=== PATIENT | male | born 1970 | race Caucasian/White ===

== ENCOUNTER 2020-06-19 15:58 | Inpatient (IN) | payer MEDICAID ==
[~2020-06-19] VITALS: Ht 175.3 cm; Wt 95.7 kg
[2020-06-19 19:00] VITALS: BP 109/62
[2020-06-19] MEDS ORDERED: OMEP20TA63 PO (19:33)
[2020-06-19] MEDS ORDERED: ASPI-630 PO (19:33)
[2020-06-19] MEDS ORDERED: ATOR40TA59 PO (19:33)
[2020-06-19] MEDS ORDERED: LEVE500T56 PO (19:33)
[2020-06-19] MEDS ORDERED: TRAZ-123 PO (19:33)
[2020-06-19] MEDS: ATORVASTATIN CALCIUM 40 MG TABLET. PO SCH (21:04)
[2020-06-19] MEDS: BACLOFEN 10 MG TABLET. PO SCH (21:04)
[2020-06-19] MEDS: levETIRAcetam 500 MG TABLET PO SCH (21:04)
[2020-06-19] MEDS: traZODone 100 MG TABLET. PO SCH (21:04)
[2020-06-19 23:00] VITALS: BP 94/49
[2020-06-20] VITALS (7 sets, daily range): BP systolic 99–127; BP diastolic 50–82
[2020-06-20] MEDS: PANTOPRAZOLE 40 MG TABLET.DR. PO SCH (06:36)
[2020-06-20] MEDS: levETIRAcetam 500 MG TABLET PO SCH ×2 (08:39→20:19)
[2020-06-20] MEDS: ASPIRIN CHEWABLE 81 MG TABLET. PO SCH (08:39)
[2020-06-20] MEDS: BACLOFEN 10 MG TABLET. PO SCH ×3 (08:39→20:19)
--- NOTE | 2020-06-20 11:49 | PDOC2 ---
NEUROLOGY CONSULT Date of Service DOS: DATE: 06/20/20 TIME: 11:42 Reason for Consult Reason for Consult: Myoclonus Referring Physician Referring Physician: Dr. Hubbard Source Source: Caregiver (Girlfriend), Chart review, Patient History of Present Illness History of Present Illness The patient is a 49-year-old right-handed male who had a right hemispheric stroke 2 years ago, for which no etiology was found. He has been followed at the [facility]. In March, he had some twitching of his left leg, sometimes his left arm, without altered consciousness, tongue biting, or i ncontinence. His physician ordered a 48-hour EEG, but he never had that done. He does not remember when he last had any imaging of the brain. He came here to visit his girlfriend in [place], and for the past week has had jerking movements of the left leg, difficulty walking, but again without altered consciousness, tongue biting, incontinence, or headache. He went to the [facility] emergency department and had a head CT as reviewed below. It was then decided to transfer him here. On closer questioning, he is really describing muscle spasms of the left leg. He has already been started on some baclofen, and says that it is helping. He is a recovering alcoholic, last drink several years ago, he used to have alcohol withdrawal seizures and remains on levetiracetam. Past Surgical History Past Surgical History: Other (Left forearm compartment syndrome from a fall while drunk) Family History Family History: No pertinent hx Social History Social History Has significant other, no longer uses alcohol, rare tobacco. Current Medications Current Medications Current Medications Baclofen (Lioresal) 10 mg TID PO Last administered on 06/20/20at 08:39; Start 06/19/20 at 21:00 Aspirin (Aspirin Chewable) 81 mg DAILY PO Last administered on 06/20/20at 08:39; Start 06/20/20 at 09:00 Atorvastatin Calcium (Lipitor) 40 mg HS PO Last administered on 06/19/20at 21:04; Start 06/19/20 at 21:00 Levetiracetam (Keppra) 500 mg BID PO Last administered on 06/20/20at 08:39; Start 06/19/20 at 21:00 Trazodone HCl (Desyrel) 100 mg QHS PO Last administered on 06/19/20at 21:04; Start 06/19/20 at 21:00 Pantoprazole Sodium (Protonix) 40 mg DAILYAC PO Last administered on 06/20/20at 06:36; Start 06/20/20 at 07:30 Active Scripts Active Reported Keppra (Levetiracetam) 500 Mg Tablet 500 Mg PO BID Trazodone Hcl 100 Mg Tablet 1 Tab PO QHS Atorvastatin Calcium 40 Mg Tablet 40 Mg PO HS Prilosec Otc (Omeprazole Magnesium) 20 Mg Tablet.dr 20 Mg PO DAILY Aspirin 81 Mg Tab.chew 1 Tab PO DAILY Allergies Allergies: Coded Allergies: No Known Medication Allergies (Verified Allergy, Unknown, 06/19/20) ROS Review of System Negative for fever, chills, weight loss, shortness of breath, chest pain, indigestion, hematochezia, melena, and dysuria. Full 14-point review of systems is negative. Physical Exam Physical Examination General: Well-developed, well-nourished white male in no acute distress HEENT: Normocephalic andatraumatic. Temporal arteriespulsatile and nontender. Neck: Supple without bruit, no meningismus Musculoskeletal: Stability:see neurologic. Gait exam:see neurologic. Tone:see neurologic.Strength:see neurologic. Neurological: Mental Status:intact, orientation, memory, attention span/concentration, language, fund of knowledge normal. Cranial Nerves:Pupils equal and reactive to light, extraocular movements areintact, visual king are full to confrontation. Facial sensation is normal. There is no facial asymmetry. Vestibulo-ocular reflex is intact. Palate elevates and tongue protrudes in midline. All other cranial related problems are negative except as mentioned before.Reflexes:2+ and symmetric with flexor plantar responses. Motor:4/5 left hemiparesis with increased tone especially in the left leg, normal bulk. Coordination:Finger-nose finger and ccxe-wk-[id number] testing are normal. Rapid alternating movements and fine finger movements are intact. Gait:Not tested. Sensory:Normal pinprick, vibration, light touch, proprioception. Vitals VITALS Vital Signs Date Time Temp Pulse Resp B/P (MAP) Pulse Ox O2 Delivery O2 Flow Rate FiO2 06/20/20 10:39 97.8 68 18 109/68 (82) 95 Room Air 97.[address] scan of the head without contrast 06/19/2020, [place]' No previous study is available for comparison. There is generalized parenchymal atrophy. An area encephalomalacia seen involving portions of the right posterior temporal/occipital/parietal lobe area of previous infarction. No acute parenchymal abnormality is seen. No extra-axial fluid collection is noted. No skull fracture is seen. Impression: No acute intracranial abnormality is seen. Assessment/Plan Assessment/Plan Impression: Right posterior temporal/occipital/parietal lobe infarction, apparently cryptogenic Spasticity from the stroke, these are not seizures or myoclonus. New ataxia, reasonable to exclude a new stroke. Recommendations: MRI of the brain Continue baclofen Rehabilitation screening I disagree with a need for electroencephalogram, routine or much less a 48-hour study. I will consider this only if he fails to respond to antispasticity agent, the baclofen. I fully discussed with the patient and his girlfriend Aim for discharge later today. Thank you for letting me help with the patient's care. CHAPINCITO IYER MD Jun 20, 2020 11:49
--- NOTE | 2020-06-20 14:08 | NUR ---
SW following. Discussed with RN, pt from home with mother in [place], pt here visiting his girlfriend. SW consult for being out of town and visiting, and needing resources. RASHAUN met with pt, pt denies any need for social work or resources - is not sure why SW was consulted. RN notified. RASHAUN will continue to follow. Addendum: 06/20/20 at 1618 by AMY RODNEY Pt transferring to [address] [place] [address]. Estefania DAO notified.
--- NOTE | 2020-06-20 14:43 | HP ---
ADMIT DATE: HISTORY OF PRESENT ILLNESS: The patient is a 49-year-old male patient who lives in [place] and who apparently came to visit his girlfriend. He apparently has a large right-sided cerebrovascular accident a year and a half ago with resultant left-sided hemiparesis, who presented to the Emergency Room of [facility] with gait ataxia, imbalance and tremors, spasm in his left leg. He stated that he had similar events last March, which resolved over a couple of days. He went to see his doctor there at that time and nothing was found. Since last Thursday, he has been having episodes of significant left lower extremity muscle spasm and cramping, which he has had before. He also stated that over the last few days, he has felt unsteady on his feet and when walking, has to hold onto the wall to keep from falling, all these are something new for him. He denied any recent illness, fever, chest pain, shortness of breath. He is on Keppra as he had a history of alcohol-induced withdrawal seizures at about the same time that he has stroke and therefore his doctor decided to keep him on it and stated that he has been taking it as prescribed. He denied any confusion, facial droop, slurred speech, numbness or weakness. He was extensively evaluated in the Emergency Room, has had a CT scan of the head, which basically showed that there is generalized parenchymal atrophy and area of encephalomalacia seen involving the portion of the right posterior temporal occipital and parietal lobe area of previous infarction. No acute parenchymal abnormalities seen. No extraaxial fluid collection is noted. No skull fracture is seen. His lab works were all well within acceptable range. His urine drug screen was negative and urinalysis was unremarkable. Given the new onset of weakness and unsteady gait, a decision was made to transfer him to [facility] to consult the neurologist and to arrange for an MRI if it was felt deemed necessary. 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 Apparently, the patient stopped drinking about 13 months ago. He also had compartment syndrome of his left upper extremity required fasciotomy and left wrist fusion. PAST SURGICAL HISTORY: Significant for: 1. Fasciotomy of the left upper extremity. 2. Wrist fusion. ALLERGIES: He has no known drug allergies. MEDICATIONS: He is currently on following medications: Omeprazole 40 mg once a day, Lipitor 40 mg at bedtime, aspirin 81 mg once a day, Keppra 500 mg twice a day, and trazodone 100 mg at bedtime. FAMILY HISTORY: He has one sister older and healthy, she has hypertension and hyperlipidemia. His father at the age of 75. Mother is still alive at age of 76 and has hypertension. SOCIAL HISTORY: He lives in [place]. He quit smoking and drinking about 13 months ago. He does not use any drugs. REVIEW OF SYSTEMS: As per history of present illness. PHYSICAL EXAMINATION: GENERAL: On arrival, he looked well and was clearly in no apparent respiratory distress. No pallor, jaundice, cyanosis or thyromegaly. No jugular venous distension. No lower limb edema. VITAL SIGNS: His heart rate was 82, blood pressure was 118/68, temperature was 98.6, respiratory rate was 16, and oxygen saturation was 94%. HEAD, EYES, EARS, NOSE AND THROAT: Showed normocephalic, atraumatic. NECK: Supple. HEART: Showed normal first and second heart sounds. No gallop, rub or murmur. CHEST: Clear to auscultation. No crepitation or rhonchi. ABDOMEN: Distended, soft, nontender. NEUROLOGIC: He was awake, alert. All his cranial nerves seem to be intact. He has a left-sided hemiparesis. He does have episodes of what seemed to be cramping or muscle spasm that is short-lived and does not seem to be consistent with partial seizures and movement of generalized and was mostly confined to his left lower extremity. LABORATORY DATA: His lab work showed a white cell count of 7500, hemoglobin 13, hematocrit 41, MCV 83 and platelet count of 193,000. His chemistry showed a serum sodium 139, potassium 4.1, chloride 103, bicarbonate 23, anion gap of 13, BUN 25, creatinine was 1.3, estimated GFR was 58 mL per minute. His glucose was 102, calcium was 8.7, magnesium was 1.8. Total bilirubin, AST, ALT, alkaline phosphatase were normal. Total protein was 6.4, albumin was 3.9. TSH was 2.463. Urinalysis was essentially unremarkable and urine drug screen was negative. ASSESSMENT AND PLAN: In summary, this is a 49-year-old male patient who was transferred to [facility] with muscle spasm in the left lower extremity and ataxic gait. We will consult Dr. Saldivar, the neurologist as well as arrange for him to have an MRI if deemed necessary. GREGORIO CHAVIRA MD DR: TINA/anthony JOB#: [id number] / [id number]
--- NOTE | 2020-06-20 15:22 | RAD ---
EXAM: MRI Brain without IV contrast INDICATION: Reason: right hemisphere stroke '19, incr'd left spasticity and ataxia, r/o new CVA / Spl . Instructions: / History: . TECHNIQUE: Sagittal and axial T1-w and axial T2-w, FLAIR, GRE, coronal T2-w, and diffusion-w images o f the brain with ADC maps without IV contrast. COMPARISON: Noncontrast head CT of 06/19/2020 FINDINGS: BRAIN PARENCHYMA: Restricted diffusion along the parafalcine right parietal lobe compatible with an e volving acute infarct. There is a large area of encephalomalacia in the right cerebral hemisphere inv olving the parietal, occipital and temporal lobes with extensive white matter gliosis. No evidence of acute hemorrhage. No mass effect. A chronic infarct in the inferior left cerebellum is also noted. VENTRICLES & EXTRA-AXIAL SPACES: Ventricles and basal cisterns are enlarged in proportion to the gene ralized parenchymal volume loss evidenced but in addition, there is ex vacuo dilation of the right la teral ventricle, similar to prior. Basilar cisterns are patent. No abnormal extra-axial fluid or mass . VESSELS: Normal signal voids in the larger intracranial vessels. ORBITS: Orbital contents are unremarkable. SINUSES: Paranasal sinuses are clear. Tympanic cavities and mastoid air cells are clear. OSSEOUS & SOFT TISSUES: Marrow signal is within normal limits. IMPRESSION: 1. Small area of restricted diffusion is present in the right parietal lobe, suggesting a small acute infarct with no hemorrhage or mass effect. 2. Large area of chronic infarction in the right cerebral hemisphere as described, and smaller area o f chronic infarction in the inferior left cerebellum. Electronically signed by: Herman Wilson MD (06/20/2020 3:20 PM) [id number]
[2020-06-20] MEDS ORDERED: ACETAMINOPHEN 325 MG TABLET. PO PRN (15:30)
[2020-06-20] MEDS ORDERED: IOHEXOL 350 MG/ML 100 ML VIAL. IV ONE (16:00)
[2020-06-20] MEDS ORDERED: CONTRAST GIVEN. MC PRN (16:00)
--- NOTE | 2020-06-20 16:31 | NUR ---
Pt transferring to room 260. Called and gave report to Katey. Pt belongings were packed by family. Pt taken to CT and then to [facility].
--- NOTE | 2020-06-20 16:41 | RAD ---
EXAM: Left ankle, 2 views. HISTORY: Pain. COMPARISON: None. FINDINGS: 2 views of the left ankle are obtained. There is a tiny ossicle inferior to the lateral mal leolus, likely due to the sequela of remote injury. There is a small accessory ossicle adjacent to th e navicular. The ankle mortise is intact. There is no ossicular lesion. There is soft tissue swelling . IMPRESSION: No acute osseous finding. Soft tissue swelling. Electronically signed by: Arianne Vasquez MD (06/20/2020 4:39 PM) [id number]
--- NOTE | 2020-06-20 17:16 | RAD ---
CTA HEAD AND NECK W/WO CONTRAST History:Reason: CVA / Spl. Instructions: [id number] 75ML / History: Technique: After bolus of intravenous contrast, volumetric CT data acquisition was acquired of the he ad and neck. Multiplanar reconstruction images to include MIP and 3-D reconstruction images are submi tted. Exposure: One or more of the following individualized dose reduction techniques were utilized for thi s examination: 1. Automated exposure control 2. Adjustment of the mA and/or kV according to patient size 3. Use of iterative reconstruction technique. Comparison: MRI June 20, 2020 Any determination of stenosis is based on NASCET criteria. Head CTA: ICA: No stenosis, occlusion or aneurysm. MCA: No stenosis, occlusion or aneurysm. FLORENTINO: No stenosis, occlusion or aneurysm. UNDERGROUND MINE SUPERINTENDENT: No stenosis, occlusion or aneurysm. Basilar artery: No stenosis, occlusion or aneurysm. Distal vertebral arteries: No stenosis, occlusion or aneurysm. Decreased opacification of the left transverse sinus compared to the right. Contrast opacification of the brain is overall arterial phase with mild contrast ossification of the venous sinuses. CT angiogram neck: Aortic arch: Patent Common carotid arteries: No stenosis, occlusion or dissection. Internal carotid arteries: No stenosis, occlusion or dissection. External carotid arteries: Patent Vertebral arteries: Left vertebral artery arises from the aortic arch. Small caliber left vertebral a rtery ends predominantly in posterior inferior cerebellar artery. Dominant right vertebral artery wit hin the neck. Imaged lung apices are unremarkable. Soft tissues appear normal. Bones: No pathologic osseous lesions. Impression: 1. No arterial stenosis or occlusion within the head or neck. 2. Decreased contrast opacification of the left transverse sinus compared to the right, may relate t o stenosis or nonocclusive thrombus. Recommend CT venogram or MR venogram to further evaluate. Electronically signed by: Vivek Wei DO (06/20/2020 5:14 PM) [facility]
--- NOTE | 2020-06-20 18:01 | NUR ---
Patient transferred from 4N to 250. Girlfriend at bedside. Telemetry placed on patient. Head to toe assessment complete. NIH done and charted. Patient NPO until ST evaluates. Patient resting in chair, visiting with girlfriend. Call light within reach.
[2020-06-20] MEDS: ATORVASTATIN CALCIUM 40 MG TABLET. PO SCH (20:19)
[2020-06-20] MEDS: traZODone 100 MG TABLET. PO SCH (20:19)
[2020-06-21 03:19] VITALS: BP 100/51
[2020-06-21 05:28] LABS: CHOLESTEROL/HDL RATIO 1.9
[2020-06-21 06:58] VITALS: BP 114/58
[2020-06-21 10:21] LABS: HEMATOCRIT 41.8 % (39.0-53.0); HEMOGLOBIN 13.5 g/dL (13.0-17.5); RED BLOOD COUNT 5.08 x10^6/uL (4.30-5.70); RED CELL DISTRIBUTION WIDTH 14.4 % (11.5-14.5); WHITE BLOOD COUNT 6.1 x10^3/uL (4.0-11.0)
[2020-06-21] MEDS: PANTOPRAZOLE 40 MG TABLET.DR. PO SCH (10:25)
[2020-06-21] MEDS: BACLOFEN 10 MG TABLET. PO SCH ×4 (10:25→21:08)
[2020-06-21] MEDS: levETIRAcetam 500 MG TABLET PO SCH ×2 (10:25→21:08)
[2020-06-21] MEDS: ASPIRIN CHEWABLE 81 MG TABLET. PO SCH (10:29)
[2020-06-21] MEDS: oxyCODONE IR 5 MG TABLET PO PRN ×2 (10:29→21:08)
[2020-06-21 10:30] LABS: PROTHROMBIN TIME PATIENT 13.8 SEC (11.7-14.0)
[2020-06-21 10:36] LABS: ALBUMIN 3.5 g/dL (3.4-5.0); ALBUMIN/GLOBULIN RATIO 1.3 (1.0-1.7); CALCIUM 8.8 mg/dL (8.5-10.1); CREATININE 1.2 mg/dL (0.7-1.3); GFR 64.6; POTASSIUM 4.3 mmol/L (3.5-5.1); TOTAL BILIRUBIN 0.7 mg/dL (0.2-1.0); TOTAL PROTEIN 6.2 g/dL (6.4-8.2)
[2020-06-21 10:39] VITALS: BP 115/62
--- NOTE | 2020-06-21 11:50 | PN ---
DATE: 06/21/2020 SUBJECTIVE: The patient was admitted as a transfer from [facility] Emergency Room with new onset of muscle spasm and ataxic gait. He was seen yesterday by Dr. Saldivar and has had an MRI of the brain, which showed the patient has small area of restricted diffusion, is present in the right parietal lobe suggesting a small acute infarct with no hemorrhage or mass effect. He also has a large area of chronic infarction in the right cerebral hemisphere and smaller area of chronic infarction in the inferior left cerebellum. OBJECTIVE: GENERAL: When I examined him today, he looked well and was clearly in no apparent respiratory distress. No pallor, jaundice, cyanosis or thyromegaly. No jugular venous distension. No lower limb edema. VITAL SIGNS: His heart rate was 75, blood pressure was 114/58, temperature was 97.8, respiratory rate was 16, and oxygen saturation was 95%. HEAD, EYES, EARS, NOSE AND THROAT: Normocephalic, atraumatic. NECK: Supple. HEART: Showed normal first and second heart sounds. No gallop, rub or murmur. CHEST: Clear to auscultation. No crepitation or rhonchi. ABDOMEN: Distended, soft, nontender. NEUROLOGIC: He has left sided hemiparesis. He continued to have episodes of muscle spasm. LABORATORY AND DIAGNOSTIC DATA: His lab work showed serum triglyceride is 111, total cholesterol was 75, LDL was 14, VLDL was 22, HDL cholesterol was 39 and ratio was 1.9. ASSESSMENT AND PLAN: Given that he has recurrent strokes, I have consulted the residential glazier for possible inborn thrombotic disorder and he is also scheduled for an echocardiogram with a bubble study. GREGORIO CHAVIRA MD DR: TINA/anthony JOB#: [id number] / [id number]
--- NOTE | 2020-06-21 13:28 | PDOC ---
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 I suppose the episode in March was also a small stroke, his physicians in [place] did not check a brain MRI them. Chronic infarctions in the right cerebral hemisphere and inferior left cerebellum. Possible stenosis or nonocclusive thrombus left transverse sinus History of alcohol-related seizures, on levetiracetam Plan Await echocardiogram MR venogram Rehabilitation modalities, may need a left ankle-foot orthosis Add clopidogrel, side effects discussed Continue aspirin Continue statin Dr. Hubbard has increased baclofen dose and consulted hematology. Aiming for discharge tomorrow Discussed with patient and girlfriend. Subjective Tremors are a little bit better Objective Vital Signs Date Time Temp Pulse Resp B/P (MAP) Pulse Ox O2 Delivery O2 Flow Rate FiO2 06/21/20 10:39 98.0 70 16 115/62 (79) 96 Room Air 98.0 Intake and Output 06/21/20 07:00 Intake Total 200 ml Output Total 700 ml Balance -500 ml Intake Oral 200 ml Output Urine Total 700 ml PHYSICAL EXAM Alert. Oriented to time, place and person. PERRL. EOMI. CN: no focal findings. Muscle tone: Increased on left Muscle strength: 4/5 left hemiparesis DTR: 2+ Plantar reflex: Flexor Gait: Consistent with left hemiparesis and left foot drop Sensory exam: no abnormal findings. No cerebellar signs elicited. Review of Relevant I have reviewed the following items brigitte (where applicable) has been applied. Labs Laboratory Tests Test 06/21/20 04:44 White Blood Count 6.1 x10^3/uL (4.0-11.0) Red Blood Count 5.08 x10^6/uL (4.30-5.70) Hemoglobin 13.5 g/dL (13.0-17.5) Hematocrit 41.8 % (39.0-53.0) Mean Corpuscular Volume 82 fL (79-100) Mean Corpuscular Hemoglobin 27 pg (25-35) Mean Corpuscular Hemoglobin Concent 32 g/dL (31-37) Red Cell Distribution Width 14.4 % (11.5-14.5) Platelet Count 218 x10^3/uL (140-400) Prothrombin Time 13.8 SEC (11.7-14.0) Prothromb Time International Ratio 1.1 (0.8-1.1) Activated Partial Thromboplast Time 30 SEC (24-38) Sodium Level 140 mmol/L (136-145) Potassium Level 4.3 mmol/L (3.5-5.1) Chloride Level 106 mmol/L (98-107) Carbon Dioxide Level 25 mmol/L (21-32) Anion Gap 9 (6-14) Blood Urea Nitrogen 18 mg/dL (8-26) Creatinine 1.2 mg/dL (0.7-1.3) Estimated GFR (Cockcroft-Gault) 64.6 BUN/Creatinine Ratio 15 (6-20) Glucose Level 94 mg/dL (70-99) Calcium Level 8.8 mg/dL (8.5-10.1) Total Bilirubin 0.7 mg/dL (0.2-1.0) Aspartate Amino Transf (AST/SGOT) 14 U/L (15-37) Alanine Aminotransferase (ALT/SGPT) 18 U/L (16-63) Alkaline Phosphatase 68 U/L (46-116) Total Protein 6.2 g/dL (6.4-8.2) Albumin 3.5 g/dL (3.4-5.0) Albumin/Globulin Ratio 1.3 (1.0-1.7) Triglycerides Level 111 mg/dL (0-150) Cholesterol Level 75 mg/dL (0-200) LDL Cholesterol, Calculated 14 mg/dL (0-100) VLDL Cholesterol, Calculated 22 mg/dL (0-40) Non-HDL Cholesterol Calculated 36 mg/dL (0-129) HDL Cholesterol 39 mg/dL (40-60) Cholesterol/HDL Ratio 1.9 Laboratory Tests Test 06/21/20 04:44 White Blood Count 6.1 x10^3/uL (4.0-11.0) Red Blood Count 5.08 x10^6/uL (4.30-5.70) Hemoglobin 13.5 g/dL (13.0-17.5) Hematocrit 41.8 % (39.0-53.0) Mean Corpuscular Volume 82 fL (79-100) Mean Corpuscular Hemoglobin 27 pg (25-35) Mean Corpuscular Hemoglobin Concent 32 g/dL (31-37) Red Cell Distribution Width 14.4 % (11.5-14.5) Platelet Count 218 x10^3/uL (140-400) Prothrombin Time 13.8 SEC (11.7-14.0) Prothromb Time International Ratio 1.1 (0.8-1.1) Activated Partial Thromboplast Time 30 SEC (24-38) Sodium Level 140 mmol/L (136-145) Potassium Level 4.3 mmol/L (3.5-5.1) Chloride Level 106 mmol/L (98-107) Carbon Dioxide Level 25 mmol/L (21-32) Anion Gap 9 (6-14) Blood Urea Nitrogen 18 mg/dL (8-26) Creatinine 1.2 mg/dL (0.7-1.3) Estimated GFR (Cockcroft-Gault) 64.6 BUN/Creatinine Ratio 15 (6-20) Glucose Level 94 mg/dL (70-99) Calcium Level 8.8 mg/dL (8.5-10.1) Total Bilirubin 0.7 mg/dL (0.2-1.0) Aspartate Amino Transf (AST/SGOT) 14 U/L (15-37) Alanine Aminotransferase (ALT/SGPT) 18 U/L (16-63) Alkaline Phosphatase 68 U/L (46-116) Total Protein 6.2 g/dL (6.4-8.2) Albumin 3.5 g/dL (3.4-5.0) Albumin/Globulin Ratio 1.3 (1.0-1.7) Triglycerides Level 111 mg/dL (0-150) Cholesterol Level 75 mg/dL (0-200) LDL Cholesterol, Calculated 14 mg/dL (0-100) VLDL Cholesterol, Calculated 22 mg/dL (0-40) Non-HDL Cholesterol Calculated 36 mg/dL (0-129) HDL Cholesterol 39 mg/dL (40-60) Cholesterol/HDL Ratio 1.9 Medications Current Medications Baclofen (Lioresal) 10 mg TID PO Last administered on 06/20/20at 20:19; Start 06/19/20 at 21:00; Stop 06/21/20 at 09:43; Status DC Aspirin (Aspirin Chewable) 81 mg DAILY PO Last administered on 06/21/20at 10:29; Start 06/20/20 at 09:00 Atorvastatin Calcium (Lipitor) 40 mg HS PO Last administered on 06/20/20at 20:19; Start 06/19/20 at 21:00 Levetiracetam (Keppra) 500 mg BID PO Last administered on 06/21/20at 10:25; Start 06/19/20 at 21:00 Trazodone HCl (Desyrel) 100 mg QHS PO Last administered on 06/20/20at 20:19; Start 06/19/20 at 21:00 Pantoprazole Sodium (Protonix) 40 mg DAILYAC PO Last administered on 06/21/20at 10:25; Start 06/20/20 at 07:30 Acetaminophen (Tylenol) 650 mg PRN Q6HRS PRN PO MILD PAIN / TEMP > 100.3'F; Start 06/20/20 at 15:30 Iohexol (Omnipaque 350 Mg/ml) 75 ml 1X ONCE IV Last administered on 06/20/20at 16:28; Start 06/20/20 at 16:00; Stop 06/20/20 at 16:01; Status DC Info (CONTRAST GIVEN -- Rx MONITORING) 1 each PRN DAILY PRN MC SEE COMMENTS; Start 06/20/20 at 16:00; Stop 06/22/20 at 15:59 Oxycodone HCl (Roxicodone) 5 mg PRN Q6HRS PRN PO PAIN Last administered on 06/21/20at 10:29; Start 06/21/20 at 09:30 Baclofen (Lioresal) 20 mg QID PO Last administered on 06/21/20at 10:25; Start 06/21/20 at 09:45 Active Scripts Active Reported Keppra (Levetiracetam) 500 Mg Tablet 500 Mg PO BID Trazodone Hcl 100 Mg Tablet 1 Tab PO QHS Atorvastatin Calcium 40 Mg Tablet 40 Mg PO HS Prilosec Otc (Omeprazole Magnesium) 20 Mg Tablet.dr 20 Mg PO DAILY Aspirin 81 Mg Tab.chew 1 Tab PO DAILY Vitals/I & O Vital Sign - Last 24 Hours 06/20/20 06/20/20 06/20/20 06/20/20 14:57 17:39 18:09 20:00 Temp 97.8 97.8 98.1 97.8 97.8 98.1 Pulse 89 78 75 Resp 18 20 16 B/P (MAP) 110/50 (70) 104/67 (79) 127/72 (90) Pulse Ox 99 99 97 O2 Delivery Room Air Room Air Room Air Room Air 06/20/20 06/20/20 06/21/20 06/21/20 20:00 22:48 03:19 06:58 Temp 97.8 98.0 97.8 97.8 98.0 97.8 Pulse 73 72 75 Resp 18 18 16 B/P (MAP) 105/57 (73) 100/51 (67) 114/58 (76) Pulse Ox 99 100 95 O2 Delivery Room Air Room Air Room Air Room Air 06/21/20 06/21/20 10:29 10:39 Temp 98.0 98.0 Pulse 70 Resp 12 16 B/P (MAP) 115/62 (79) Pulse Ox 96 O2 Delivery Room Air Room Air Intake and Output 06/20/20 06/20/20 06/21/20 15:00 23:00 07:00 Intake Total 200 ml 0 ml Output Total 300 ml 400 ml Balance -100 ml -400 ml Images MRI Brain without IV contrast INDICATION: Reason: right hemisphere stroke '19, incr'd left spasticity and ataxia, r/o new CVA / Spl. Instructions: / History: . TECHNIQUE: Sagittal and axial T1-w and axial T2-w, FLAIR, GRE, coronal T2-w, and diffusion-w images of the brain with ADC maps without IV contrast. COMPARISON: Noncontrast head CT of 06/19/2020 FINDINGS: BRAIN PARENCHYMA: Restricted diffusion along the parafalcine right parietal lobe compatible with an evolving acute infarct. There is a large area of encephalomalacia in the right cerebral hemisphere involving the parietal, occipital and temporal lobes with extensive white matter gliosis. No evidence of acute hemorrhage. No mass effect. A chronic infarct in the inferior left cerebellum is also noted. VENTRICLES & EXTRA-AXIAL SPACES: Ventricles and basal cisterns are enlarged in proportion to the generalized parenchymal volume loss evidenced but in addition, there is ex vacuo dilation of the right lateral ventricle, similar to prior. Basilar cisterns are patent. No abnormal extra-axial fluid or mass. VESSELS: Normal signal voids in the larger intracranial vessels. ORBITS: Orbital contents are unremarkable. SINUSES: Paranasal sinuses are clear. Tympanic cavities and mastoid air cells are clear. OSSEOUS & SOFT TISSUES: Marrow signal is within normal limits. IMPRESSION: 1. Small area of restricted diffusion is present in the right parietal lobe, suggesting a small acute infarct with no hemorrhage or mass effect. 2. Large area of chronic infarction in the right cerebral hemisphere as described, and smaller area of chronic infarction in the inferior left cerebellum. CTA HEAD AND NECK W/WO CONTRAST History:Reason: CVA / Spl. Instructions: [id number] / History: Technique: After bolus of intravenous contrast, volumetric CT data acquisition was acquired of the head and neck. Multiplanar reconstruction images to include MIP and 3-D reconstruction images are submitted. Exposure: One or more of the following individualized dose reduction techniques were utilized for this examination: 1. Automated exposure control 2. Adjustment of the mA and/or kV according to patient size 3. Use of iterative reconstruction technique. Comparison: MRI June 20, 2020 Any determination of stenosis is based on NASCET criteria. Head CTA: ICA: No stenosis, occlusion or aneurysm. MCA: No stenosis, occlusion or aneurysm. FLORENTINO: No stenosis, occlusion or aneurysm. DOCK CLERK: No stenosis, occlusion or aneurysm. Basilar artery: No stenosis, occlusion or aneurysm. Distal vertebral arteries: No stenosis, occlusion or aneurysm. Decreased opacification of the left transverse sinus compared to the right. Contrast opacification of the brain is overall arterial phase with mild contrast ossification of the venous sinuses. CT angiogram neck: Aortic arch: Patent Common carotid arteries: No stenosis, occlusion or dissection. Internal carotid arteries: No stenosis, occlusion or dissection. External carotid arteries: Patent Vertebral arteries: Left vertebral artery arises from the aortic arch. Small caliber left vertebral artery ends predominantly in posterior inferior cerebellar artery. Dominant right vertebral artery within the neck. Imaged lung apices are unremarkable. Soft tissues appear normal. Bones: No pathologic osseous lesions. Impression: 1. No arterial stenosis or occlusion within the head or neck. 2. Decreased contrast opacification of the left transverse sinus compared to the right, may relate to stenosis or nonocclusive thrombus. Recommend CT venogram or MR venogram to further evaluate. Justicifation of Admission Dx: Justifications for Admission: Justification of Admission Dx: Yes Stroke - Ischemic: Stroke-Ischemic CHAPINCITO IYER MD Jun 21, 2020 13:28
--- NOTE | 2020-06-21 15:22 | NUR ---
SS following for discharge planning. SS reviewed pt chart and discussed with pt RN. Pt is from home with family and is currently on room air. PT/OT/ST recommending home. Pt has history of strokes and is having tremors. Pt's family discussing with neurology and early childhood services coordinator. Pt needing walker for home per family. SS will continue to follow for discharge planning.
[2020-06-21 15:55] VITALS: BP 130/60
[2020-06-21] MEDS: CLOPIDOGREL BISULFATE 75 MG TABLET PO SCH (16:15)
--- NOTE | 2020-06-21 16:53 | RAD ---
MRI BRAIN WO History:Reason: abnormal CT angiogram / Spl. Instructions: / History: Technique: 2-D [id number] MR venogram was performed of the brain in the axial, sagittal and coron al position is. 3-D reconstructions were performed. Comparison: CT angiogram June 20, 2020 Findings: Region of decreased flow within the left transverse sinus corresponding with CT angiogram findings. P atent superior sagittal, straight, right transverse and bilateral sigmoid venous sinuses. Impression: 1. Decreased flow within the left transverse sinus corresponding with CT angiography findings, may r elate to congenital hypoplasia or stenosis. Electronically signed by: Vivek Wei DO (06/21/2020 4:50 PM) [facility]
--- NOTE | 2020-06-21 17:32 | CARD ---
MR#: [id number] Date of Study: 06/21/2020 Ordering Physician: GREGORIO CHAVIRA, Referring Physician: GREGORIO CHAVIRA, Tech: Debbi Rascon RDCS APPROVED REPORT EXAM: Two-dimensional and M-mode echocardiogram with Doppler and color Doppler. Other Information Quality : Good INDICATION CVA/TIA History: CVA 2019 RISK FACTORS Hyperlipidemia 2D DIMENSIONS Left Atrium(2D)3.6 (1.6-4.0cm)IVSd1.1 (0.7-1.1cm) Aortic Root(2D)3.1 (2.0-3.7cm)LVDd4.7 (3.9-5.9cm) LVOT Diameter2.1 (1.8-2.4cm)PWd1.0 (0.7-1.1cm) LVDs2.8 (2.5-4.0cm)FS (%) 39.8 % SV70.9 mlLVEF(%)60.0 (>50%) Aortic Valve AoV Peak Seth.130.3cm/sAoV VTI20.1cm AO Peak GR.6.8mmHgLVOT Peak Seth.127.4cm/s AO Mean GR.3mmHgAVA (VMAX)3.39cm2 JENY (VTI)3.90cm2 Mitral Valve MV E Yqpjqthf56.8cm/sMV DECEL [id number] MV A Rmwpukba09.3cm/sE/A Ratio1.0 Tricuspid Valve TR P. Qkntjubi417vx/sRAP [id number] TR Peak Gr.59niAmLEFW10jjZv Pulmonary Vein S1 Ilxittpd69.3cm/sD2 Pgeouqqq11.0cm/s LEFT VENTRICLE The left ventricle is normal size. There is normal left ventricular wall thickness. The left ventricu lar systolic function is normal and the ejection fraction is within normal range. The Ejection Fracti on is 55-60%. There is normal LV segmental wall motion. Transmitral Doppler flow pattern is Grade I-a bnormal relaxation pattern. RIGHT VENTRICLE The right ventricle is normal size. The right ventricular systolic function is normal. ATRIA The left atrium size is normal. The right atrium size is normal. The interatrial septum is intact wit h no evidence for an atrial septal defect or patent foramen ovale as noted on 2-D or Doppler imaging. AORTIC VALVE The aortic valve is calcified but opens well. Doppler and Color Flow revealed no significant aortic r egurgitation. There is no significant aortic valvular stenosis. MITRAL VALVE The mitral valve is calcified but opens well. There is no evidence of mitral valve prolapse. There is no mitral valve stenosis. Doppler and Color-flow revealed trace mitral regurgitation. TRICUSPID VALVE The tricuspid valve is normal in structure and function. Doppler and Color Flow revealed trace tricus pid regurgitation. The PA pressure was estimated at 25 mmHg. There is no tricuspid valve stenosis. PULMONIC VALVE The pulmonic valve is not well visualized. Doppler and Color Flow revealed no pulmonic valvular regur gitation. There is no pulmonic valvular stenosis. GREAT VESSELS The aortic root is normal in size. The ascending aorta is normal in size. The IVC was not visualized. PERICARDIAL EFFUSION There is no evidence of significant pericardial effusion. Critical Notification Critical Value: No <Conclusion> The left ventricle is normal size. The left ventricular systolic function is normal and the ejection fraction is within normal range. The Ejection Fraction is 55-60%. Doppler and Color Flow revealed no significant aortic regurgitation. There is no significant aortic valvular stenosis. Doppler and Color-flow revealed trace mitral regurgitation. Doppler and Color Flow revealed trace tricuspid regurgitation. The PA pressure was estimated at 25 mmHg. Signed by : Jose Tavarez MD Electronically Approved : 06/21/2020 17:31:52
[2020-06-21 19:40] VITALS: BP 111/57
[2020-06-21] MEDS: ATORVASTATIN CALCIUM 40 MG TABLET. PO SCH (21:08)
[2020-06-21] MEDS: traZODone 100 MG TABLET. PO SCH (21:08)
[2020-06-21 23:40] VITALS: BP 93/55
[2020-06-22 03:20] VITALS: BP 109/72
[2020-06-22] MEDS: oxyCODONE IR 5 MG TABLET PO PRN (03:31)
[2020-06-22] MEDS: PANTOPRAZOLE 40 MG TABLET.DR. PO SCH (06:06)
[2020-06-22 07:00] VITALS: BP 104/68
[2020-06-22] MEDS: ASPIRIN CHEWABLE 81 MG TABLET. PO SCH (08:28)
[2020-06-22] MEDS: BACLOFEN 10 MG TABLET. PO SCH ×4 (08:28→22:01)
[2020-06-22] MEDS: CLOPIDOGREL BISULFATE 75 MG TABLET PO SCH (08:28)
[2020-06-22] MEDS: levETIRAcetam 500 MG TABLET PO SCH ×2 (08:28→22:02)
--- NOTE | 2020-06-22 08:49 | PDOC ---
PROGRESS NOTES Date of Service DATE: 06/22/20 TIME: 08:44 Assessment Left-sided simple-partial seizures. Now that I have seen an episode this is more than just a spastic tremor Acute infarct in right parietal lobe, small vessel disease, not consistent with embolism Chronic infarctions in the right cerebral hemisphere and inferior left cerebellum. Congenital stenosis of left transverse sinus. MR venogram negative for thrombus History of alcohol-related seizures, on levetiracetam Plan Increase levetiracetam dose to 1000 mg twice daily Electroencephalogram Rehabilitation modalities, may need a left ankle-foot orthosis Clopidogrel, aspirin, statin Hold on discharge Objective Vital Signs Date Time Temp Pulse Resp B/P (MAP) Pulse Ox O2 Delivery O2 Flow Rate FiO2 06/22/20 04:31 18 96 Room Air 06/22/20 03:20 97.7 70 109/72 (84) 97.7 Intake and Output 06/22/20 07:00 Intake Total 1300 ml Output Total 2 ml Balance 1298 ml Intake Oral 1000 ml Tube Feeding 300 ml Output Urine Total 2 ml # Voids 5 PHYSICAL EXAM Alert. Oriented to time, place and person. PERRL. EOMI. CN: no focal findings. Muscle tone: Increased on left Muscle strength: 4/5 left hemiparesis DTR: 2+ Plantar reflex: Flexor Gait: Consistent with left hemiparesis and left foot drop Sensory exam: no abnormal findings. No cerebellar signs elicited. I witnessed one of his episodes. He says that he has tingling in the left foot which spreads peripherally, then he has clonic movements of the left leg. He says that sometimes the sensory symptoms brought into the left shoulder but it did not this time Review of Relevant I have reviewed the following items brigitte (where applicable) has been applied. Labs Laboratory Tests Test 06/21/20 04:44 White Blood Count 6.1 x10^3/uL (4.0-11.0) Red Blood Count 5.08 x10^6/uL (4.30-5.70) Hemoglobin 13.5 g/dL (13.0-17.5) Hematocrit 41.8 % (39.0-53.0) Mean Corpuscular Volume 82 fL (79-100) Mean Corpuscular Hemoglobin 27 pg (25-35) Mean Corpuscular Hemoglobin Concent 32 g/dL (31-37) Red Cell Distribution Width 14.4 % (11.5-14.5) Platelet Count 218 x10^3/uL (140-400) Prothrombin Time 13.8 SEC (11.7-14.0) Prothromb Time International Ratio 1.1 (0.8-1.1) Activated Partial Thromboplast Time 30 SEC (24-38) Sodium Level 140 mmol/L (136-145) Potassium Level 4.3 mmol/L (3.5-5.1) Chloride Level 106 mmol/L (98-107) Carbon Dioxide Level 25 mmol/L (21-32) Anion Gap 9 (6-14) Blood Urea Nitrogen 18 mg/dL (8-26) Creatinine 1.2 mg/dL (0.7-1.3) Estimated GFR (Cockcroft-Gault) 64.6 BUN/Creatinine Ratio 15 (6-20) Glucose Level 94 mg/dL (70-99) Calcium Level 8.8 mg/dL (8.5-10.1) Total Bilirubin 0.7 mg/dL (0.2-1.0) Aspartate Amino Transf (AST/SGOT) 14 U/L (15-37) Alanine Aminotransferase (ALT/SGPT) 18 U/L (16-63) Alkaline Phosphatase 68 U/L (46-116) Total Protein 6.2 g/dL (6.4-8.2) Albumin 3.5 g/dL (3.4-5.0) Albumin/Globulin Ratio 1.3 (1.0-1.7) Triglycerides Level 111 mg/dL (0-150) Cholesterol Level 75 mg/dL (0-200) LDL Cholesterol, Calculated 14 mg/dL (0-100) VLDL Cholesterol, Calculated 22 mg/dL (0-40) Non-HDL Cholesterol Calculated 36 mg/dL (0-129) HDL Cholesterol 39 mg/dL (40-60) Cholesterol/HDL Ratio 1.9 Medications Current Medications Baclofen (Lioresal) 10 mg TID PO Last administered on 06/20/20at 20:19; Start 06/19/20 at 21:00; Stop 06/21/20 at 09:43; Status DC Aspirin (Aspirin Chewable) 81 mg DAILY PO Last administered on 06/22/20at 08:28; Start 06/20/20 at 09:00 Atorvastatin Calcium (Lipitor) 40 mg HS PO Last administered on 06/21/20at 21:08; Start 06/19/20 at 21:00 Levetiracetam (Keppra) 500 mg BID PO Last administered on 06/22/20at 08:28; Start 06/19/20 at 21:00 Trazodone HCl (Desyrel) 100 mg QHS PO Last administered on 06/21/20at 21:08; Start 06/19/20 at 21:00 Pantoprazole Sodium (Protonix) 40 mg DAILYAC PO Last administered on 06/22/20at 06:06; Start 06/20/20 at 07:30 Acetaminophen (Tylenol) 650 mg PRN Q6HRS PRN PO MILD PAIN / TEMP > 100.3'F; Start 06/20/20 at 15:30 Iohexol (Omnipaque 350 Mg/ml) 75 ml 1X ONCE IV Last administered on 06/20/20at 16:28; Start 06/20/20 at 16:00; Stop 06/20/20 at 16:01; Status DC Info (CONTRAST GIVEN -- Rx MONITORING) 1 each PRN DAILY PRN MC SEE COMMENTS; Start 06/20/20 at 16:00; Stop 06/22/20 at 15:59 Oxycodone HCl (Roxicodone) 5 mg PRN Q6HRS PRN PO PAIN Last administered on 06/22/20at 03:31; Start 06/21/20 at 09:30 Baclofen (Lioresal) 20 mg QID PO Last administered on 06/22/20at 08:28; Start 06/21/20 at 09:45 Clopidogrel Bisulfate (Plavix) 75 mg DAILYWBKFT PO Last administered on 06/22/20at 08:28; Start 06/21/20 at 13:30 Active Scripts Active Reported Keppra (Levetiracetam) 500 Mg Tablet 500 Mg PO BID Trazodone Hcl 100 Mg Tablet 1 Tab PO QHS Atorvastatin Calcium 40 Mg Tablet 40 Mg PO HS Prilosec Otc (Omeprazole Magnesium) 20 Mg Tablet.dr 20 Mg PO DAILY Aspirin 81 Mg Tab.chew 1 Tab PO DAILY Vitals/I & O Vital Sign - Last 24 Hours 06/21/20 06/21/20 06/21/20 06/21/20 10:29 10:39 14:14 15:55 Temp 98.0 97.9 98.0 97.9 Pulse 70 70 Resp 12 16 16 B/P (MAP) 115/62 (79) 130/60 (83) Pulse Ox 96 96 95 O2 Delivery Room Air Room Air Room Air Room Air 06/21/20 06/21/20 06/21/20 06/21/20 19:40 20:16 21:08 22:08 Temp 98.1 98.1 Pulse 81 Resp 18 20 20 B/P (MAP) 111/57 (75) Pulse Ox 94 94 94 O2 Delivery Room Air Room Air Room Air Room Air 06/21/20 06/22/20 06/22/20 06/22/20 23:40 03:20 03:31 04:31 Temp 98.1 97.7 98.1 97.7 Pulse 72 70 Resp 18 18 20 18 B/P (MAP) 93/55 (68) 109/72 (84) Pulse Ox 96 95 96 96 O2 Delivery Room Air Room Air Room Air Room Air Intake and Output 06/21/20 06/21/20 06/22/20 15:00 23:00 07:00 Intake Total 600 ml 300 ml 400 ml Output Total 2 ml Balance 598 ml 300 ml 400 ml Images MRI BRAIN WO History:Reason: abnormal CT angiogram / Spl. Instructions: / History: Technique: 2-D [id number] MR venogram was performed of the brain in the axial, sagittal and coronal position is. 3-D reconstructions were performed. Comparison: CT angiogram June 20, 2020 Findings: Region of decreased flow within the left transverse sinus corresponding with CT angiogram findings. Patent superior sagittal, straight, right transverse and bilateral sigmoid venous sinuses. Impression: 1. Decreased flow within the left transverse sinus corresponding with CT angiography findings, may relate to congenital hypoplasia or stenosis. Echocardiogram: LEFT VENTRICLE The left ventricle is normal size. There is normal left ventricular wall thickness. The left ventricular systolic function is normal and the ejection fraction is within normal range. The Ejection Fraction is 55-60%. There is norm al LV segmental wall motion. Transmitral Doppler flow pattern is Grade I- abnormal relaxation pattern. RIGHT VENTRICLE The right ventricle is normal size. The right ventricular systolic function is normal. ATRIA The left atrium size is normal. The right atrium size is normal. The interatrial septum is intact with no evidence for an atrial septal defect or patent foramen ovale as noted on 2-D or Doppler imaging. AORTIC VALVE The aortic valve is calcified but opens well. Doppler and Color Flow revealed no significant aortic regurgitation. There is no significant aortic valvular stenosis. MITRAL VALVE The mitral valve is calcified but opens well. There is no evidence of mitral valve prolapse. There is no mitral valve stenosis. Doppler and Color-flow revealed trace mitral regurgitation. TRICUSPID VALVE The tricuspid valve is normal in structure and function. Doppler and Color Flow revealed trace tricuspid regurgitation. The PA pressure was estimated at 25 mmHg. There is no tricuspid valve stenosis. PULMONIC VALVE The pulmonic valve is not well visualized. Doppler and Color Flow revealed no pulmonic valvular regurgitation. There is no pulmonic valvular stenosis. GREAT VESSELS The aortic root is normal in size. The ascending aorta is normal in size. The IVC was not visualized. PERICARDIAL EFFUSION There is no evidence of significant pericardial effusion. Critical Notification Critical Value: No <Conclusion> The left ventricle is normal size. The left ventricular systolic function is normal and the ejection fraction is within normal range. The Ejection Fraction is 55-60%. Doppler and Color Flow revealed no significant aortic regurgitation. There is no significant aortic valvular stenosis. Doppler and Color-flow revealed trace mitral regurgitation. Doppler and Color Flow revealed trace tricuspid regurgitation. The PA pressure was estimated at 25 mmHg. Justicifation of Admission Dx: Justifications for Admission: Justification of Admission Dx: Yes Stroke - Ischemic: Stroke-Ischemic CHAPINCITO YIER MD Jun 22, 2020 08:49
--- NOTE | 2020-06-22 08:53 | PDOC2 ---
CONSULT Date of Consult Date of Consult DATE: 06/22/20 TIME: 08:41 Reason for Consult Reason for Consult: Recurrent stroke Referring Physician Referring Physician: Dr. Hubbard Identification/Chief Complaint Chief Complaint Bebo Murphy is a 49-year-old male who has been admitted and is currently receiving management of newly diagnosed stroke. Bebo has a prior history of CVA. He had a right hemispheric stroke 2 years ago, for which no etiology was found. He has been followed at the [facility]. In March, he had some twitching of his left leg, sometimes his left arm, without altered consciousness, tongue biting, or incontinence. He reports that EEG was recommended for evaluation but he did not receive it.. He is a resident of [place] and came here to visit his girlfriend in [place]. Patient reports reoccurrence jerking movements of the left leg, difficulty walking similar to what he experienced in March. He denies fever or loss of consciousness. He went to the [facility] emergency department and received a CT head which did not show an acute stroke. It did show an old infarct from his pr ior episode. He was transferred to [facility] for further evaluation. He received a brain MRI which showed a small area of restricted diffusion in the right parietal lobe, suggesting a small acute infarct with no hemorrhage or mass effect. Additionally, a large area of chronic infarction in the right cerebral hemisphere was described, and smaller area of chronic i nfarction in the inferior left cerebellum. Neurology consultation has been obtained and he has received a CT angiogram of the head and neck which showed decreased contrast opacification of the left transverse sinus compared to the right. MR venogram was recommended and showed decreased flow within the left transverse sinus corresponding with CT angiography findings, possibly related to congenital hypoplasia or stenosis. Hematology consultation has been sought to determine need for additional evaluation for hypercoagulable syndromes given the patient's frequent history. Patient has no personal history of venous thromboembolism. Past Surgical History Past Surgical History: Other (Left forearm compartment syndrome from a fall while drunk) Current Medications Current Medications Current Medications Baclofen (Lioresal) 10 mg TID PO Last administered on 06/20/20at 20:19; Start 06/19/20 at 21:00; Stop 06/21/20 at 09:43; Status DC Aspirin (Aspirin Chewable) 81 mg DAILY PO Last administered on 06/22/20at 08:28; Start 06/20/20 at 09:00 Atorvastatin Calcium (Lipitor) 40 mg HS PO Last administered on 06/21/20at 21:08; Start 06/19/20 at 21:00 Levetiracetam (Keppra) 500 mg BID PO Last administered on 06/22/20at 08:28; Start 06/19/20 at 21:00 Trazodone HCl (Desyrel) 100 mg QHS PO Last administered on 06/21/20at 21:08; Start 06/19/20 at 21:00 Pantoprazole Sodium (Protonix) 40 mg DAILYAC PO Last administered on 06/22/20at 06:06; Start 06/20/20 at 07:30 Acetaminophen (Tylenol) 650 mg PRN Q6HRS PRN PO MILD PAIN / TEMP > 100.3'F; Start 06/20/20 at 15:30 Iohexol (Omnipaque 350 Mg/ml) 75 ml 1X ONCE IV Last administered on 06/20/20at 16:28; Start 06/20/20 at 16:00; Stop 06/20/20 at 16:01; Status DC Info (CONTRAST GIVEN -- Rx MONITORING) 1 each PRN DAILY PRN MC SEE COMMENTS; Start 06/20/20 at 16:00; Stop 06/22/20 at 15:59 Oxycodone HCl (Roxicodone) 5 mg PRN Q6HRS PRN PO PAIN Last administered on 06/22/20at 03:31; Start 06/21/20 at 09:30 Baclofen (Lioresal) 20 mg QID PO Last administered on 06/22/20at 08:28; Start 06/21/20 at 09:45 Clopidogrel Bisulfate (Plavix) 75 mg DAILYWBKFT PO Last administered on 06/22/20at 08:28; Start 06/21/20 at 13:30 Active Scripts Active Reported Keppra (Levetiracetam) 500 Mg Tablet 500 Mg PO BID Trazodone Hcl 100 Mg Tablet 1 Tab PO QHS Atorvastatin Calcium 40 Mg Tablet 40 Mg PO HS Prilosec Otc (Omeprazole Magnesium) 20 Mg Tablet.dr 20 Mg PO DAILY Aspirin 81 Mg Tab.chew 1 Tab PO DAILY Allergies Allergies: Coded Allergies: No Known Medication Allergies (Verified Allergy, Unknown, 06/19/20) ROS General: No: Fatigue, Malaise PSYCHOLOGICAL ROS: No: Hallucinations, Hostility HEENT: No: Oral lesions, Sinus pain ALLERGY AND IMMUNOLOGY: No: Nasal Congestion, Post Nasal Drip Hematological and Lymphatic: No: Brusing, Night Sweats ENDOCRINE: No: Malaise/lethargy, Mood Swings Breast: No Nipple discharge Respiratory: No: Shortness of breath Cardiovascular: No Paroxysmal Noc. Dyspnea, No Edema Gastrointestinal: No Diarrhea Genitourinary: No Urgency Musculoskeletal: No Muscle Pain Neurological: No Headaches, No Numbness/Tingling Skin: No Mottling Physical Exam General: Alert, Oriented X3 HEENT: Atraumatic Lungs: Clear to auscultation Heart: Regular rate, Normal S1 Abdomen: Normal bowel sounds Extremities: No clubbing Skin: No breakdown Neuro: Normal speech MUSCULOSKELETAL: No swelling Vitals VITALS Vital Signs Date Time Temp Pulse Resp B/P (MAP) Pulse Ox O2 Delivery O2 Flow Rate FiO2 06/22/20 04:31 18 96 Room Air 06/22/20 03:20 97.7 70 109/72 (84) 97.7 Labs Labs Laboratory Tests Test 06/21/20 04:44 White Blood Count 6.1 x10^3/uL (4.0-11.0) Red Blood Count 5.08 x10^6/uL (4.30-5.70) Hemoglobin 13.5 g/dL (13.0-17.5) Hematocrit 41.8 % (39.0-53.0) Mean Corpuscular Volume 82 fL (79-100) Mean Corpuscular Hemoglobin 27 pg (25-35) Mean Corpuscular Hemoglobin Concent 32 g/dL (31-37) Red Cell Distribution Width 14.4 % (11.5-14.5) Platelet Count 218 x10^3/uL (140-400) Prothrombin Time 13.8 SEC (11.7-14.0) Prothromb Time International Ratio 1.1 (0.8-1.1) Activated Partial Thromboplast Time 30 SEC (24-38) Sodium Level 140 mmol/L (136-145) Potassium Level 4.3 mmol/L (3.5-5.1) Chloride Level 106 mmol/L (98-107) Carbon Dioxide Level 25 mmol/L (21-32) Anion Gap 9 (6-14) Blood Urea Nitrogen 18 mg/dL (8-26) Creatinine 1.2 mg/dL (0.7-1.3) Estimated GFR (Cockcroft-Gault) 64.6 BUN/Creatinine Ratio 15 (6-20) Glucose Level 94 mg/dL (70-99) Calcium Level 8.8 mg/dL (8.5-10.1) Total Bilirubin 0.7 mg/dL (0.2-1.0) Aspartate Amino Transf (AST/SGOT) 14 U/L (15-37) Alanine Aminotransferase (ALT/SGPT) 18 U/L (16-63) Alkaline Phosphatase 68 U/L (46-116) Total Protein 6.2 g/dL (6.4-8.2) Albumin 3.5 g/dL (3.4-5.0) Albumin/Globulin Ratio 1.3 (1.0-1.7) Triglycerides Level 111 mg/dL (0-150) Cholesterol Level 75 mg/dL (0-200) LDL Cholesterol, Calculated 14 mg/dL (0-100) VLDL Cholesterol, Calculated 22 mg/dL (0-40) Non-HDL Cholesterol Calculated 36 mg/dL (0-129) HDL Cholesterol 39 mg/dL (40-60) Cholesterol/HDL Ratio 1.9 Assessment/Plan Assessment/Plan Assessment: Acute CVA History of CVA Left transverse sinus stenosis, 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 Testing for factor V Leiden and PT gene mutation is not allowed inpatient by [facility] lab -He does not require continuation of inpatient stay to review results. -Rest of his care per Dr. Stevie Rosenbaum MD Medical Oncology/Hematology Ph: [phone] BASIA ROSENBAUM MD Jun 22, 2020 08:53
[2020-06-22] MEDS ORDERED: levETIRAcetam 500 MG TABLET PO ONE (09:00)
--- NOTE | 2020-06-22 10:16 | PN ---
DATE: 06/22/2020 SUBJECTIVE: The patient is resting, slightly propped up in bed, in no apparent respiratory distress. He is awake, alert, apparently Dr. Saldivar witnessed partial seizures and his Keppra was increased to 1000 mg twice a day. He is also scheduled for an EEG today with a plan to continue with Plavix, aspirin, and statin. PHYSICAL EXAMINATION: GENERAL: When I examined him, he looked well and was clearly in no apparent respiratory distress. No pallor, jaundice, cyanosis or thyromegaly. No jugular venous distension. No lower limb edema. VITAL SIGNS: His heart rate was 57, blood pressure was 104/68, temperature 98.1, respiratory rate was 18 and oxygen saturation was 96%. The rest of clinical exam is stable. LABORATORY DATA: As of yesterday, his white cell count was 6000; hemoglobin 13.5; hematocrit 42; MCV 82; and platelet count 218,000. His serum sodium was 140, potassium 4.3, chloride 106, bicarbonate 25, anion gap of 9, BUN 18, creatinine 1.2, estimated GFR was 64 mL per minute. His glucose was 94, calcium was 8.8. Total bilirubin, AST, ALT, alkaline phosphatase were normal. Total protein 6.2, albumin 3.5. Serum triglycerides 111, total cholesterol 75, LDL was 14, VLDL was 22, HDL was 39 and ratio was 1.9. His prothrombin time, INR and aPTT are all normal. ASSESSMENT: 1. Left-sided simple partial seizures, for which his Keppra was increased to 1000 mg twice a day. He is scheduled for an EEG. 2. His MRI showed acute infarct in the right parietal lobe, small vessel disease, not consistent with embolism. 3. Chronic infarction in the right cerebral hemisphere and inferior left cerebellum. 4. 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 MR venogram negative for thrombosis. 5. History of alcohol-related seizures, on levetiracetam. The patient was seen by Dr. Amezcua for possible hypercoagulable state and he ordered anti-cardiolipin anti-beta-2 glycoprotein, lupus anticoagulant, protein C, protein S deficiencies, antithrombin 3 level. GREGORIO CHAVIRA MD DR: TINA/anthony JOB#: [id number] / [id number]
[2020-06-22 11:00] VITALS: BP 111/63
--- NOTE | 2020-06-22 11:25 | NUR ---
SS following up with discharge planning. SS reviewed pt chart and discussed with pt RN. Pt is currently on room air. PT/OT recommended home. Discharge plan is to home when medically ready. SS will continue to follow for discharge planning.
[2020-06-22 15:00] VITALS: BP 115/69
--- NOTE | 2020-06-22 15:40 | NUR ---
Patient had an episode of left leg tremors around 1540.
[2020-06-22 19:15] VITALS: BP 119/56
[2020-06-22] MEDS: ATORVASTATIN CALCIUM 40 MG TABLET. PO SCH (22:00)
[2020-06-22] MEDS: traZODone 100 MG TABLET. PO SCH (22:02)
[2020-06-22 23:17] VITALS: BP 113/68
[2020-06-23 03:00] VITALS: BP 96/52
[2020-06-23 07:00] VITALS: BP 99/60
[2020-06-23] MEDS: PANTOPRAZOLE 40 MG TABLET.DR. PO SCH (08:28)
[2020-06-23] MEDS: CLOPIDOGREL BISULFATE 75 MG TABLET PO SCH (08:28)
[2020-06-23] MEDS: BACLOFEN 10 MG TABLET. PO SCH ×4 (08:28→20:50)
[2020-06-23] MEDS: ASPIRIN CHEWABLE 81 MG TABLET. PO SCH (08:28)
[2020-06-23] MEDS: levETIRAcetam 500 MG TABLET PO SCH ×2 (08:29→20:50)
[2020-06-23] MEDS ORDERED: BACL20TA PO (10:09)
[2020-06-23] MEDS ORDERED: OXYC5TAB88 PO (10:11)
--- NOTE | 2020-06-23 10:35 | PN ---
DATE: SUBJECTIVE: The patient is sitting comfortably in his chair, in no apparent distress. On questioning him, he denied any complaints. He apparently had an EEG done yesterday that was not read yet; however, his Keppra was already increased to 1000 mg twice a day. We did start him on baclofen and pain medication and he seemed to be doing much better. PHYSICAL EXAMINATION: GENERAL: When I examined him this morning, he was somewhat pale, but no jaundice, cyanosis or thyromegaly. No jugular venous distension. No limb edema. VITAL SIGNS: His heart rate was 67, blood pressure was 99/60, temperature was 97.7, respiratory rate was 18 and oxygen saturation was 95% on room air. HEAD, EYES, EARS, NOSE AND THROAT: Showed normocephalic, atraumatic. NECK: Supple. HEART: Showed normal first and second heart sounds. No gallop or murmur. CHEST: Clear to auscultation. No crepitation or rhonchi. ABDOMEN: Distended, soft, nontender. NEUROLOGIC: He was grossly stable with left-sided hemiparesis. LABORATORY DATA: His intake was 1300, no output was recorded. His lab work is all within acceptable range. ASSESSMENT: 1. Left-sided simple partial seizure for which his Keppra was increased to 1000 mg twice a day. He has had an EEG done. The results of which are still pending at the time of this dictation. 2. His MRI showed acute infarct in the right parietal lobe, small vessel disease, not consistent with embolism. 3. Chronic infarction in the right cerebral hemisphere in the inferior left cerebellum. 4. Congenital stenosis, the left transverse sinus. Magnetic resonance venogram was negative for thrombosis. 5. History of alcohol-related seizures, on levetiracetam. 6. The patient was seen by . ____ for possible hypercoagulable state and he ordered multiple lab works that are still pending at the time of this dictation. I have prepared all the paperwork for him to be discharged and he can be sent home if the neurologist okays that. GREGORIO CHAVIRA MD DR: TINA/anthony JOB#: [id number] / [id number]
[2020-06-23 11:00] VITALS: BP 110/61
--- NOTE | 2020-06-23 14:27 | EEG ---
DATE OF SERVICE: 06/22/2020 EEG # 16 OBJECTIVE: The patient is a 49-year-old male with focal left sided seizures following a stroke. DESCRIPTION: This is a digital study. Electrodes are placed according to international 10-20 system. Bipolar and referential montages are available. Activation procedures typically include hyperventilation and intermittent photic stimulation. INTERPRETATION: The waking background consists of 9-10 Hz, 50-100 microvolt activity, symmetrically distributed over parietooccipital regions and reactive to eye opening. The patient has 2 of his episodes during the recording, neither of which is associated with epileptic activity. However, independent of his focal episodes on the left side, there is some paroxysmal slowing with occasional phase reversal phenomenon at C3-P3. Sleep, stage 2, is achieved with normal electroencephalogram patterns. Hyperventilation and intermittent photic stimulation are noncontributory. IMPRESSION: This electroencephalogram with the patient awake and asleep is abnormal because of a focal disturbance of cerebral activity in the left central parietal region consistent with the patient's known stroke. This is not clearcut epileptic activity and during two of his episodes, there was no epileptic abnormality. Thank you for letting us help with the patient's care. CHAPINCITO IYER MD DR: RAFAEL/anthony JOB#: [id number] / [id number]
[2020-06-23 15:00] VITALS: BP 108/67
--- NOTE | 2020-06-23 15:17 | PDOC ---
PROGRESS NOTES Date of Service DATE: 06/23/20 TIME: 15:15 Assessment Left-sided simple-partial seizures. EEG cut to events, neither associate with epileptic activity, but he did have paroxysmal slowing in the same region which I consider suspicious for epileptic. He is seeing some improvement since increasing the levetiracetam dose Acute infarct in right parietal lobe, small vessel disease, not consistent with embolism Chronic infarctions in the right cerebral hemisphere and inferior left cerebellum. Congenital stenosis of left transverse sinus. MR venogram negative for thrombus History of alcohol-related seizures, on levetiracetam already Plan Increase levetiracetam dose further to 1500 mg twice daily Rehabilitation modalities, may need a left ankle-foot orthosis Clopidogrel, aspirin, statin Hold on discharge, has still had 3 events today Since he is going to be here anyway, proceed with cardiac work-up for the cryptogenic strokes, including transesophageal echocardiogram and outpatient LINQ recording Subjective Has had 3 episodes today, thinks they are improving Objective Vital Signs Date Time Temp Pulse Resp B/P (MAP) Pulse Ox O2 Delivery O2 Flow Rate FiO2 06/23/20 11:00 97.9 63 18 110/61 (77) 98 Room Air 97.9 Intake and Output 06/23/20 07:00 Intake Total 1118 ml Balance 1118 ml Intake Oral 1118 ml # Voids 6 PHYSICAL EXAM Alert. Oriented to time, place and person. PERRL. EOMI. CN: no focal findings. Muscle tone: Increased on left Muscle strength: 4/5 left hemiparesis DTR: 2+ Plantar reflex: Flexor Gait: Consistent with left hemiparesis and left foot drop Sensory exam: no abnormal findings. No cerebellar signs elicited. Review of Relevant I have reviewed the following items brigitte (where applicable) has been applied. Medications Current Medications Baclofen (Lioresal) 10 mg TID PO Last administered on 06/20/20at 20:19; Start 06/19/20 at 21:00; Stop 06/21/20 at 09:43; Status DC Aspirin (Aspirin Chewable) 81 mg DAILY PO Last administered on 06/23/20at 08:28; Start 06/20/20 at 09:00 Atorvastatin Calcium (Lipitor) 40 mg HS PO Last administered on 06/22/20at 22:00; Start 06/19/20 at 21:00 Levetiracetam (Keppra) 500 mg BID PO Last administered on 06/22/20at 08:28; Start 06/19/20 at 21:00; Stop 06/22/20 at 08:45; Status DC Trazodone HCl (Desyrel) 100 mg QHS PO Last administered on 06/22/20at 22:02; Start 06/19/20 at 21:00 Pantoprazole Sodium (Protonix) 40 mg DAILYAC PO Last administered on 06/23/20at 08:28; Start 06/20/20 at 07:30 Acetaminophen (Tylenol) 650 mg PRN Q6HRS PRN PO MILD PAIN / TEMP > 100.3'F Last administered on 06/22/20at 13:59; Start 06/20/20 at 15:30 Iohexol (Omnipaque 350 Mg/ml) 75 ml 1X ONCE IV Last administered on 06/20/20at 16:28; Start 06/20/20 at 16:00; Stop 06/20/20 at 16:01; Status DC Info (CONTRAST GIVEN -- Rx MONITORING) 1 each PRN DAILY PRN MC SEE COMMENTS; Start 06/20/20 at 16:00; Stop 06/22/20 at 15:59; Status DC Oxycodone HCl (Roxicodone) 5 mg PRN Q6HRS PRN PO MODERATE - SEVERE PAIN Last administered on 06/22/20at 03:31; Start 06/21/20 at 09:30 Baclofen (Lioresal) 20 mg QID PO Last administered on 06/23/20at 13:08; Start 06/21/20 at 09:45 Clopidogrel Bisulfate (Plavix) 75 mg DAILYWBKFT PO Last administered on 06/23/20at 08:28; Start 06/21/20 at 13:30 Levetiracetam (Keppra) 1,000 mg BID PO Last administered on 06/23/20at 08:29; Start 06/22/20 at 21:00; Stop 06/23/20 at 15:01; Status DC Levetiracetam (Keppra) 500 mg 1X ONCE PO Last administered on 06/22/20at 09:45; Start 06/22/20 at 09:00; Stop 06/22/20 at 09:01; Status DC Levetiracetam (Keppra) 1,500 mg BID PO ; Start 06/23/20 at 21:00 Active Scripts Active Reported Keppra (Levetiracetam) 500 Mg Tablet 500 Mg PO BID Trazodone Hcl 100 Mg Tablet 1 Tab PO QHS Atorvastatin Calcium 40 Mg Tablet 40 Mg PO HS Prilosec Otc (Omeprazole Magnesium) 20 Mg Tablet.dr 20 Mg PO DAILY Aspirin 81 Mg Tab.chew 1 Tab PO DAILY Vitals/I & O Vital Sign - Last 24 Hours 06/22/20 06/22/20 06/22/20 06/23/20 19:15 20:00 23:17 03:00 Temp 97.6 97.8 98.0 97.6 97.8 98.0 Pulse 83 57 51 Resp 20 20 20 B/P (MAP) 119/56 (77) 113/68 (83) 96/52 (67) Pulse Ox 97 96 96 O2 Delivery Room Air Room Air Room Air Room Air 06/23/20 06/23/20 06/23/20 07:00 07:40 11:00 Temp 97.7 97.9 97.7 97.9 Pulse 67 63 Resp 18 18 B/P (MAP) 99/60 (73) 110/61 (77) Pulse Ox 95 98 O2 Delivery Room Air Room Air Room Air Intake and Output 06/22/20 06/22/20 06/23/20 15:00 23:00 07:00 Intake Total 118 ml 1000 ml Balance 118 ml 1000 ml Justicifation of Admission Dx: Justifications for Admission: Justification of Admission Dx: Yes Stroke - Ischemic: Stroke-Ischemic CHAPINCITO IYER MD Jun 23, 2020 15:17
[2020-06-23 19:40] VITALS: BP 117/71
[2020-06-23] MEDS: traZODone 100 MG TABLET. PO SCH (20:50)
[2020-06-23] MEDS: ATORVASTATIN CALCIUM 40 MG TABLET. PO SCH (20:50)
[2020-06-23 23:23] VITALS: BP 104/62
[2020-06-24 03:45] VITALS: BP 102/65
[2020-06-24 07:00] VITALS: BP 111/70
[2020-06-24] MEDS: BACLOFEN 10 MG TABLET. PO SCH ×4 (08:14→20:33)
[2020-06-24] MEDS: PANTOPRAZOLE 40 MG TABLET.DR. PO SCH (08:14)
[2020-06-24] MEDS: levETIRAcetam 500 MG TABLET PO SCH ×2 (08:14→20:33)
[2020-06-24] MEDS: CLOPIDOGREL BISULFATE 75 MG TABLET PO SCH (08:14)
[2020-06-24] MEDS: ASPIRIN CHEWABLE 81 MG TABLET. PO SCH (08:14)
--- NOTE | 2020-06-24 08:52 | PN ---
DATE: 06/24/2020 SUBJECTIVE: The patient is sitting comfortably in his recliner, in no apparent respiratory distress. He did have 2 episodes of muscle spasm or partial seizures overnight. Otherwise, he denied any other complaint. He apparently is scheduled for transesophageal echocardiogram tomorrow. PHYSICAL EXAMINATION: GENERAL: When I saw him this morning, he looked well and was clearly in no apparent respiratory distress. No pallor, jaundice, cyanosis or thyromegaly. No jugular venous distention. No lower limb edema. VITAL SIGNS: His heart rate was 60, blood pressure was 102/65, temperature was 97.7, respiratory rate was 18 and oxygen saturation was 97% on room air. HEAD, EYES, EARS, NOSE AND THROAT: Normocephalic, atraumatic. NECK: Supple. HEART: Showed normal first and second heart sounds. No gallop, rub or murmur. CHEST: Clear to auscultation. No crepitation or rhonchi. ABDOMEN: Distended, soft, nontender. NEUROLOGICAL: He was awake, alert. He does have left-sided hemiparesis. His intake and output are incompletely recorded. ASSESSMENT: 1. Left-sided simple partial seizure for which his Keppra was increased to 1500 mg twice a day. He had an EEG done, which basically was abnormal because of focal disturbance of cerebral activity in the left central parietal region, consistent with the patient's known stroke. This is not clear-cut epileptic activity; and during 2 of his episodes, there were no epileptic abnormalities. 2. His MRI showed acute infarct in the right parietal lobe, small vessel disease, but not consistent with embolism. 3. Chronic infarction in the right cerebral hemisphere and in the inferior left cerebellum. 4. 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 Magnetic resonance venogram was negative for thrombosis. 5. History of alcohol-related seizures, on levetiracetam. I did consult Dr. Hamilton for possible hypercoagulable state. He ordered multiple labs, the results of which are still pending at the time of this dictation. GREGORIO CHAVIRA MD DR: TINA/anthony JOB#: [id number] / [id number]
[2020-06-24 11:00] VITALS: BP 116/66
--- NOTE | 2020-06-24 13:19 | PDOC ---
PROGRESS NOTES Date of Service DATE: 06/24/20 TIME: 13:16 Assessment Left-sided simple-partial seizures. EEG cut to events, neither associate with epileptic activity, but he did have paroxysmal slowing in the same region which I consider suspicious for epileptic. He is seeing some improvement since increasing the levetiracetam dose. 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 Congenital stenosis of left transverse sinus. MR venogram negative for thrombus. No arterial abnormalities History of alcohol-related seizures, on levetiracetam already Plan Increased levetiracetam dose to 1500 mg twice daily, will hold at this level. Next step, add lacosamide Rehabilitation modalities Clopidogrel, aspirin, statin Aim for discharge as soon as tomorrow afternoon Cardiac work-up for the cryptogenic strokes, including transesophageal echocardiogram and outpatient LINQ recording Await hypercoagulable lab work results Subjective Feeling better, left foot is stronger, still had 4 episodes since I last saw him . He thinks they are worse when he is lying down, I do not have an explanation for the positionality Objective Vital Signs Date Time Temp Pulse Resp B/P (MAP) Pulse Ox O2 Delivery O2 Flow Rate FiO2 06/24/20 11:00 97.6 50 20 116/66 (83) 97 Room Air 97.6 Intake and Output 06/24/20 07:00 Intake Total 1390 ml Output Total 300 ml Balance 1090 ml Intake Oral 1390 ml Output Urine Total 300 ml # Voids 2 PHYSICAL EXAM Alert. Oriented to time, place and person. PERRL. EOMI. CN: no focal findings. Muscle tone: Increased on left Muscle strength: 4/5 left arm, 5 -/5 left foot DTR: 2+ Plantar reflex: Flexor Gait: Not tested Sensory exam: no abnormal findings. No cerebellar signs elicited. Review of Relevant I have reviewed the following items brigitte (where applicable) has been applied. Medications Current Medications Baclofen (Lioresal) 10 mg TID PO Last administered on 06/20/20at 20:19; Start 06/19/20 at 21:00; Stop 06/21/20 at 09:43; Status DC Aspirin (Aspirin Chewable) 81 mg DAILY PO Last administered on 06/24/20at 08:14; Start 06/20/20 at 09:00 Atorvastatin Calcium (Lipitor) 40 mg HS PO Last administered on 06/23/20at 20:50; Start 06/19/20 at 21:00 Levetiracetam (Keppra) 500 mg BID PO Last administered on 06/22/20at 08:28; Start 06/19/20 at 21:00; Stop 06/22/20 at 08:45; Status DC Trazodone HCl (Desyrel) 100 mg QHS PO Last administered on 06/23/20at 20:50; Start 06/19/20 at 21:00 Pantoprazole Sodium (Protonix) 40 mg DAILYAC PO Last administered on 06/24/20at 08:14; Start 06/20/20 at 07:30 Acetaminophen (Tylenol) 650 mg PRN Q6HRS PRN PO MILD PAIN / TEMP > 100.3'F Last administered on 06/22/20at 13:59; Start 06/20/20 at 15:30 Iohexol (Omnipaque 350 Mg/ml) 75 ml 1X ONCE IV Last administered on 06/20/20at 16:28; Start 06/20/20 at 16:00; Stop 06/20/20 at 16:01; Status DC Info (CONTRAST GIVEN -- Rx MONITORING) 1 each PRN DAILY PRN MC SEE COMMENTS; Start 06/20/20 at 16:00; Stop 06/22/20 at 15:59; Status DC Oxycodone HCl (Roxicodone) 5 mg PRN Q6HRS PRN PO MODERATE - SEVERE PAIN Last administered on 06/22/20at 03:31; Start 06/21/20 at 09:30 Baclofen (Lioresal) 20 mg QID PO Last administered on 06/24/20at 12:36; Start 06/21/20 at 09:45 Clopidogrel Bisulfate (Plavix) 75 mg DAILYWBKFT PO Last administered on 06/05 05/24at 08:14; Start 06/21/20 at 13:30 Levetiracetam (Keppra) 1,000 mg BID PO Last administered on 06/23/20at 08:29; Start 06/22/20 at 21:00; Stop 06/23/20 at 15:01; Status DC Levetiracetam (Keppra) 500 mg 1X ONCE PO Last administered on 06/22/20at 09:45; Start 06/22/20 at 09:00; Stop 06/22/20 at 09:01; Status DC Levetiracetam (Keppra) 1,500 mg BID PO Last administered on 06/24/20at 08:14; Start 06/23/20 at 21:00 Active Scripts Active Reported Keppra (Levetiracetam) 500 Mg Tablet 500 Mg PO BID Trazodone Hcl 100 Mg Tablet 1 Tab PO QHS Atorvastatin Calcium 40 Mg Tablet 40 Mg PO HS Prilosec Otc (Omeprazole Magnesium) 20 Mg Tablet.dr 20 Mg PO DAILY Aspirin 81 Mg Tab.chew 1 Tab PO DAILY Vitals/I & O Vital Sign - Last 24 Hours 06/23/20 06/23/20 06/23/20 06/23/20 15:00 19:40 20:00 23:23 Temp 97.9 98.5 98.1 97.9 98.5 98.1 Pulse 56 71 78 Resp 18 20 20 B/P (MAP) 108/67 (81) 117/71 (86) 104/62 (76) Pulse Ox 99 98 98 O2 Delivery Room Air Room Air Room Air Room Air 06/24/20 06/24/20 06/24/20 06/24/20 03:45 07:00 07:40 11:00 Temp 97.7 97.2 97.6 97.7 97.2 97.6 Pulse 60 65 50 Resp 18 18 20 B/P (MAP) 102/65 (77) 111/70 (84) 116/66 (83) Pulse Ox 97 98 97 O2 Delivery Room Air Room Air Room Air Room Air Intake and Output 06/23/20 06/23/20 06/24/20 15:00 23:00 07:00 Intake Total 750 ml 400 ml 240 ml Output Total 300 ml Balance 750 ml 400 ml -60 ml Justicifation of Admission Dx: Justifications for Admission: Justification of Admission Dx: Yes Stroke - Ischemic: Stroke-Ischemic CHAPINCITO IYER MD Jun 24, 2020 13:18
--- NOTE | 2020-06-24 13:39 | PDOC ---
PROGRESS NOTES Date of Service DATE: 06/24/20 TIME: 13:36 Subjective Subjective Patient seen and examined Objective Objective Vital Signs Date Time Temp Pulse Resp B/P (MAP) Pulse Ox O2 Delivery O2 Flow Rate FiO2 06/24/20 11:00 97.6 50 20 116/66 (83) 97 Room Air 97.6 Intake and Output 06/24/20 07:00 Intake Total 1390 ml Output Total 300 ml Balance 1090 ml Intake Oral 1390 ml Output Urine Total 300 ml # Voids 2 Physical Exam Abdomen: Normal bowel sounds Heart: Regular rate General: No acute distress Lungs: Clear to auscultation Assessment Assessment Left-sided simple/partial seizure disorder. Work-up in progress by the neurology service. Hypercoagulability panel pending. ANGIE has been requested for possible cryptogenic stroke. Also outpatient monitoring including a possible Linq device. We will schedule ANGIE for tomorrow. The procedure, risks and benefits were discussed with the patient. He has agreed to proceed. Plan Plan of Care 1. Neurology work-up in progress. 2. Transesophageal echo be scheduled for tomorrow. 3. Outpatient monitoring with a possible Linq device Comment Review of Relevant I have reviewed the following items brigitte (where applicable) has been applied. Medications Current Medications Baclofen (Lioresal) 10 mg TID PO Last administered on 06/20/20at 20:19; Start 06/19/20 at 21:00; Stop 06/21/20 at 09:43; Status DC Aspirin (Aspirin Chewable) 81 mg DAILY PO Last administered on 06/24/20at 08:14; Start 06/20/20 at 09:00 Atorvastatin Calcium (Lipitor) 40 mg HS PO Last administered on 06/23/20at 20:50; Start 06/19/20 at 21:00 Levetiracetam (Keppra) 500 mg BID PO Last administered on 06/22/20at 08:28; Start 06/19/20 at 21:00; Stop 06/22/20 at 08:45; Status DC Trazodone HCl (Desyrel) 100 mg QHS PO Last administered on 06/23/20at 20:50; Start 06/19/20 at 21:00 Pantoprazole Sodium (Protonix) 40 mg DAILYAC PO Last administered on 06/24/20at 08:14; Start 06/20/20 at 07:30 Acetaminophen (Tylenol) 650 mg PRN Q6HRS PRN PO MILD PAIN / TEMP > 100.3'F Last administered on 06/22/20at 13:59; Start 06/20/20 at 15:30 Iohexol (Omnipaque 350 Mg/ml) 75 ml 1X ONCE IV Last administered on 06/20/20at 16:28; Start 06/20/20 at 16:00; Stop 06/20/20 at 16:01; Status DC Info (CONTRAST GIVEN -- Rx MONITORING) 1 each PRN DAILY PRN MC SEE COMMENTS; Start 06/20/20 at 16:00; Stop 06/22/20 at 15:59; Status DC Oxycodone HCl (Roxicodone) 5 mg PRN Q6HRS PRN PO MODERATE - SEVERE PAIN Last administered on 06/22/20at 03:31; Start 06/21/20 at 09:30 Baclofen (Lioresal) 20 mg QID PO Last administered on 06/24/20at 12:36; Start 06/21/20 at 09:45 Clopidogrel Bisulfate (Plavix) 75 mg DAILYWBKFT PO Last administered on 06/24/20at 08:14; Start 06/21/20 at 13:30 Levetiracetam (Keppra) 1,000 mg BID PO Last administered on 06/23/20at 08:29; Start 06/22/20 at 21:00; Stop 06/23/20 at 15:01; Status DC Levetiracetam (Keppra) 500 mg 1X ONCE PO Last administered on 06/22/20at 09:45; Start 06/22/20 at 09:00; Stop 06/22/20 at 09:01; Status DC Levetiracetam (Keppra) 1,500 mg BID PO Last administered on 06/24/20at 08:14; Start 06/23/20 at 21:00 Active Scripts Active Reported Keppra (Levetiracetam) 500 Mg Tablet 500 Mg PO BID Trazodone Hcl 100 Mg Tablet 1 Tab PO QHS Atorvastatin Calcium 40 Mg Tablet 40 Mg PO HS Prilosec Otc (Omeprazole Magnesium) 20 Mg Tablet.dr 20 Mg PO DAILY Aspirin 81 Mg Tab.chew 1 Tab PO DAILY Vitals/I & O Vital Sign - Last 24 Hours 06/23/20 06/23/20 06/23/20 06/23/20 15:00 19:40 20:00 23:23 Temp 97.9 98.5 98.1 97.9 98.5 98.1 Pulse 56 71 78 Resp 18 20 20 B/P (MAP) 108/67 (81) 117/71 (86) 104/62 (76) Pulse Ox 99 98 98 O2 Delivery Room Air Room Air Room Air Room Air 06/24/20 06/24/20 06/24/20 06/24/20 03:45 07:00 07:40 11:00 Temp 97.7 97.2 97.6 97.7 97.2 97.6 Pulse 60 65 50 Resp 18 18 20 B/P (MAP) 102/65 (77) 111/70 (84) 116/66 (83) Pulse Ox 97 98 97 O2 Delivery Room Air Room Air Room Air Room Air Intake and Output 06/23/20 06/23/20 06/24/20 15:00 23:00 07:00 Intake Total 750 ml 400 ml 240 ml Output Total 300 ml Balance 750 ml 400 ml -60 ml Justifications for Admission Other Justification PRESTON TINOCO MD Jun 24, 2020 13:39
[2020-06-24 15:00] VITALS: BP 111/63
[2020-06-24 19:00] VITALS: BP_SYST 111; BP_SYST 120; BP_DIAS 63; BP_DIAS 76
[2020-06-24] MEDS: ATORVASTATIN CALCIUM 40 MG TABLET. PO SCH (20:33)
[2020-06-24] MEDS: traZODone 100 MG TABLET. PO SCH (20:33)
[2020-06-24 22:49] VITALS: BP_SYST 107; BP_SYST 145; BP_DIAS 68; BP_DIAS 72
[2020-06-25 03:00] VITALS: BP 123/71
[2020-06-25 07:00] VITALS: BP 106/67
[2020-06-25] MEDS ORDERED: LIDOCAINE 2% VISCOUS 15 ML SOLUTION. SWSW ONE (09:15)
[2020-06-25] MEDS ORDERED: LIDOCAINE 2% TOPICAL JELLY 30GM TUBE. TP ONE (09:15)
[2020-06-25] MEDS ORDERED: BENZOCAINE ONE 20% MUCOSAL SPRAY. MM (09:15)
[2020-06-25] MEDS: levETIRAcetam 500 MG TABLET PO SCH (09:28)
[2020-06-25] MEDS: ASPIRIN CHEWABLE 81 MG TABLET. PO SCH (09:28)
[2020-06-25] MEDS: BACLOFEN 10 MG TABLET. PO SCH ×2 (09:28→13:44)
[2020-06-25] MEDS: PANTOPRAZOLE 40 MG TABLET.DR. PO SCH (09:28)
--- NOTE | 2020-06-25 10:54 | PDOC ---
PROGRESS NOTES Date of Service DATE: 06/25/20 TIME: 10:51 Assessment Left-sided simple-partial seizures. EEG showed two events, neither associated with epileptic activity, but he did have paroxysmal slowing in the same region, which I consider suspicious for epileptic. He is seeing some improvement since increasing the levetiracetam dose. 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 MR venogram negative for thr ombus. No arterial abnormalities History of compartment syndrome of the left forearm leaving him with weakness in the left arm History of alcohol-related seizures, on levetiracetam already Plan Increased levetiracetam dose to 1500 mg twice daily, will hold at this level. Rehabilitation modalities Clopidogrel, aspirin, statin Okay for discharge this afternoon Cardiac work-up for the cryptogenic strokes, including transesophageal echocardiogram and outpatient LINQ recording Await hypercoagulable lab work results Follow-up with me in 6 weeks Subjective Feeling better, wants to go home Objective Vital Signs Date Time Temp Pulse Resp B/P (MAP) Pulse Ox O2 Delivery O2 Flow Rate FiO2 06/25/20 10:29 98.1 83 20 123/76 96 Room Air 98.1 Intake and Output 06/25/20 07:00 Intake Total 1000 ml Balance 1000 ml Intake Oral 1000 ml # Voids 3 PHYSICAL EXAM Alert. Oriented to time, place and person. PERRL. EOMI. CN: no focal findings. Muscle tone: Increased on left Muscle strength: 4/5 left arm, 5 -/5 left foot DTR: 2+ Plantar reflex: Flexor Gait: normal, does well without cane Sensory exam: no abnormal findings. No cerebellar signs elicited. Review of Relevant I have reviewed the following items brigitte (where applicable) has been applied. Labs Laboratory Tests Test 06/24/20 15:42 SARS-CoV-2 Antigen (Rapid) Negative (NEGATIVE) Laboratory Tests Test 06/24/20 15:42 SARS-CoV-2 Antigen (Rapid) Negative (NEGATIVE) Medications Current Medications Baclofen (Lioresal) 10 mg TID PO Last administered on 06/20/20at 20:19; Start 06/19/20 at 21:00; Stop 06/21/20 at 09:43; Status DC Aspirin (Aspirin Chewable) 81 mg DAILY PO Last administered on 06/25/20 09:28; Start 06/20/20 at 09:00 Atorvastatin Calcium (Lipitor) 40 mg HS PO Last administered on 06/24/20at 20:33; Start 06/19/20 at 21:00 Levetiracetam (Keppra) 500 mg BID PO Last administered on 06/22/20at 08:28; Start 06/19/20 at 21:00; Stop 06/22/20 at 08:45; Status DC Trazodone HCl (Desyrel) 100 mg QHS PO Last administered on 06/24/20 20:33; Start 06/19/20 at 21:00 Pantoprazole Sodium (Protonix) 40 mg DAILYAC PO Last administered on 06/25/20 09:28; Start 06/20/20 at 07:30 Acetaminophen (Tylenol) 650 mg PRN Q6HRS PRN PO MILD PAIN / TEMP > 100.3'F Last administered on 06/22/20at 13:59; Start 06/20/20 at 15:30 Iohexol (Omnipaque 350 Mg/ml) 75 ml 1X ONCE IV Last administered on 06/20/20 16:28; Start 06/20/20 at 16:00; Stop 06/20/20 at 16:01; Status DC Info (CONTRAST GIVEN -- Rx MONITORING) 1 each PRN DAILY PRN MC SEE COMMENTS; Start 06/20/20 at 16:00; Stop 06/22/20 at 15:59; Status DC Oxycodone HCl (Roxicodone) 5 mg PRN Q6HRS PRN PO MODERATE - SEVERE PAIN Last administered on 06/22/20at 03:31; Start 06/21/20 at 09:30 Baclofen (Lioresal) 20 mg QID PO Last administered on 06/25/20at 09:28; Start 06/21/20 at 09:45 Clopidogrel Bisulfate (Plavix) 75 mg DAILYWBKFT PO Last administered on 06/24/20at 08:14; Start 06/21/20 at 13:30 Levetiracetam (Keppra) 1,000 mg BID PO Last administered on 06/23/20at 08:29; Start 06/22/20 at 21:00; Stop 06/23/20 at 15:01; Status DC Levetiracetam (Keppra) 500 mg 1X ONCE PO Last administered on 06/22/20at 09:45; Start 06/22/20 at 09:00; Stop 06/22/20 at 09:01; Status DC Levetiracetam (Keppra) 1,500 mg BID PO Last administered on 06/25/20at 09:28; Start 06/23/20 at 21:00 Lidocaine HCl (Xylocaine 2% Topical 30gm Tube) 1 adriana 1X ONCE TP ; Start 06/25/20 at 09:15; Stop 06/25/20 at 09:16; Status DC Lidocaine HCl (Viscous Lidocaine) 15 ml 1X ONCE SWSW ; Start 06/25/20 at 09:15; Stop 06/25/20 at 09:16; Status DC Benzocaine (Hurricaine One) 2 spray 1X ONCE MM ; Start 06/25/20 at 09:15; Stop 06/25/20 at 09:16; Status DC Active Scripts Active Reported Keppra (Levetiracetam) 500 Mg Tablet 500 Mg PO BID Trazodone Hcl 100 Mg Tablet 1 Tab PO QHS Atorvastatin Calcium 40 Mg Tablet 40 Mg PO HS Prilosec Otc (Omeprazole Magnesium) 20 Mg Tablet.dr 20 Mg PO DAILY Aspirin 81 Mg Tab.chew 1 Tab PO DAILY Vitals/I & O Vital Sign - Last 24 Hours 06/24/20 06/24/20 06/24/20 06/24/20 11:00 15:00 19:00 20:09 Temp 97.6 97.8 97.5 97.6 97.8 97.5 Pulse 50 81 79 Resp 20 20 20 B/P (MAP) 116/66 (83) 111/63 (79) 120/76 (91) Pulse Ox 97 96 97 O2 Delivery Room Air Room Air Room Air Room Air 06/24/20 06/25/20 06/25/20 06/25/20 22:49 03:00 07:00 07:58 Temp 98.8 98.9 98.0 98.8 98.9 98.0 Pulse 67 70 75 Resp 19 18 16 B/P (MAP) 107/68 (81) 123/71 (88) 106/67 (80) Pulse Ox 99 96 96 O2 Delivery Room Air Room Air Room Air Room Air 06/25/20 10:29 Temp 98.1 98.1 Pulse 83 Resp 20 B/P (MAP) 123/76 Pulse Ox 96 O2 Delivery Room Air Intake and Output 06/24/20 06/24/20 06/25/20 15:00 23:00 07:00 Intake Total 800 ml 200 ml 0 ml Balance 800 ml 200 ml 0 ml Justicifation of Admission Dx: Justifications for Admission: Justification of Admission Dx: Yes Stroke - Ischemic: Stroke-Ischemic CHAPINCITO IYER MD Jun 25, 2020 10:54
[2020-06-25] MEDS ORDERED: IV RINGERS,LACTATED 1000ML 1,000 ML IV SCH (10:59)
[2020-06-25 12:20] VITALS: BP 127/59
--- NOTE | 2020-06-25 12:49 | NUR ---
SS following up with discharge planning. SS reviewed pt chart and discussed with pt RN. Pt is currently on room air. ANGIE today. PT/OT recommended home. Discharge plan is to home when medically ready. SS will continue to follow for discharge planning.
[2020-06-25] MEDS ORDERED: LEVE500T6 PO (13:14)
[2020-06-25] MEDS: CLOPIDOGREL BISULFATE 75 MG TABLET PO SCH (13:44)
--- NOTE | 2020-06-25 14:05 | NUR ---
Discharge Note: DANGELO LEYVA [facility] Discharge instructions and discharge home medications reviewed with Patient and a copy given. All questions have been answered and understanding verbalized. The following instructions and handouts were given: discharge instructions, follow ups, RXs, stroke education, seizure education, medication info. Discontinued lines and drains: Peripheral IV intact. Patient discharged to Home or Self Care with Significant Other via Wheelchair at 1405. Outpatient therapy will be set up.
--- NOTE | 2020-06-25 15:48 | CARD ---
MR#: [id number] Date of Study: 06/25/2020 Ordering Physician: PRESTON TAVAREZ, Referring Physician: Blossom BRODY: Debbi Rascon RDCS APPROVED REPORT EXAM: Transesophageal echocardiogram with color flow Doppler. INDICATION CVA/TIA RISK FACTORS Hyperlipidemia Reason For Test : Rule out cardiac source of emboli. PROCEDURE After obtaining informed consent, patient underwent transesophageal echo in the PACU. Type of Sedation : General Anesthesia Sedation was administered by Ian Velarde CRNA. Sedation was achieved with Propofol 350 mg intravenously. Transesophageal probe was inserted and advanced into esophagus by Preston Tavarez MD. The ANGIE was performed without complications. Throughout the procedure, the blood pressure, pulse oximetry, cardiac rhythm, and rate were monitored . The patient tolerated the procedure without adverse effects. Recovery from general anesthesia was une ventful and vital signs were stable. LEFT VENTRICLE The left ventricle is normal size. There is normal left ventricular wall thickness. The left ventricu lar systolic function is normal and the ejection fraction is within normal range. The Ejection Fracti on is 55-60%. There is normal LV segmental wall motion. RIGHT VENTRICLE The right ventricle is normal size. The right ventricular systolic function is normal. ATRIA The left atrium size is normal. The right atrium size is normal. The interatrial septum appears thin but is intact with no evidence for an atrial septal defect or patent foramen ovale as noted on 2-D or Doppler imaging. Negative bubble study x2. There is no thrombus noted in the left atrial appendage. AORTIC VALVE The aortic valve is calcified but opens well. Doppler and Color Flow revealed no significant aortic r egurgitation. There is no significant aortic valvular stenosis. MITRAL VALVE The mitral valve is calcified but opens well. There is no evidence of mitral valve prolapse. There is no mitral valve stenosis. Doppler and Color-flow revealed trace mitral regurgitation. TRICUSPID VALVE The tricuspid valve is normal in structure and function. Doppler and Color Flow revealed trace tricus pid regurgitation. There is no tricuspid valve stenosis. PULMONIC VALVE The pulmonary valve is normal in structure and function. Doppler and Color Flow revealed no pulmonic valvular regurgitation. There is no pulmonic valvular stenosis. GREAT VESSELS The aortic root is normal in size. Critical Notification Critical Value: No <Conclusion> The left ventricle is normal size. The left ventricular systolic function is normal and the ejection fraction is within normal range. The Ejection Fraction is 55-60%. The interatrial septum appears thin but is intact with no evidence for an atrial septal defect or pat ent foramen ovale as noted on 2-D or Doppler imaging. Negative bubble study x2. There is no thrombus noted in the left atrial appendage. Doppler and Color Flow revealed no significant aortic regurgitation. There is no significant aortic valvular stenosis. Doppler and Color-flow revealed trace mitral regurgitation. Doppler and Color Flow revealed trace tricuspid regurgitation. Signed by : Preston Tavarez MD Electronically Approved : 06/25/2020 15:47:56
--- NOTE | 2020-06-26 10:16 | NUR ---
RASHAUN asked by Dr. Hubbard to arrange for out-patient PT/OT services at [facility]. RASHAUN called and spoke with pt ([phone]) who confirmed he would like out-patient therapy services with [facility]. RASHAUN phoned and faxed the order as well as clinicals to Lorenza with the out-patient therapy department at [facility], (phone), (fax). Contact information for the rehab department provided to pt. No further RASHAUN needs identified. Addendum: 06/26/20 at 1707 by KRISTI RODNEY Lorenza called this RASHAUN back stating that 's [place] Medicaid plan requires prior authorization for out-patient PT/OT services. Lorenza stated that the authorization request must come from [facility] and provided this RASHAUN with the Tax ID and NPI number for [facility]. RASHAUN phoned and faxed authorization request to [employer] with 's insurance [employer], (phone), (fax). RASHAUN LVM for UR and referenced the original call reference number of [id number]. RASHAUN awaiting return call from pt's insurance company. RASHAUN called pt to update.
== END 2020-06-25 14:05 | disposition home or self-care (01) | DRG 65 ==
LOC: 4 NORTH 15:58 → 2 SOUTH 06-20 16:41
PROVIDERS: ADMIT Internal Medicine; ATTEND Internal Medicine
PROC: B24BZZ4 Ultrasonography of Heart with Aorta, Transesophageal (ICD-10-PCS; principal; 2020-06-25 11:00)
DX: I63.9 Cerebral infarction, unspecified (principal); G40.109 Localization-related (focal) (partial) symptomatic epilepsy and epileptic syndromes with simple partial seizures, not intractable, without status epilepticus; G81.94 Hemiplegia, unspecified affecting left nondominant side; Z20.822 Contact with and (suspected) exposure to COVID-19; E78.5 Hyperlipidemia, unspecified; F10.21 Alcohol dependence, in remission; G93.89 Other specified disorders of brain; I10 Essential (primary) hypertension; I73.9 Peripheral vascular disease, unspecified; Z87.891 Personal history of nicotine dependence; Z86.73 Personal history of transient ischemic attack (TIA), and cerebral infarction without residual deficits; Z82.49 Family history of ischemic heart disease and other diseases of the circulatory system; I08.1 Rheumatic disorders of both mitral and tricuspid valves
CPT/HCPCS: 36415; 70496; 70498; 70544; 70551; 73600; 80053; 80061; 85027; 85300; 85302; 85306; 85610; 85730; 86146; 86147; 87426; 93306; 93312; 93325; 95816; J7120; Q9967; U0003; 92610-GN; 97110-GP; 97116-GP; 97530-GO; 97530-GP; 97535-GO; G0378